=== PATIENT | female | born 1985 | race American Indian/Alaskan Native ===

== ENCOUNTER 2018-04-04 20:41 | Outpatient (CLI) | payer MEDICAID ==
[2018-04-04 21:18] VITALS: BP 102/69
[2018-04-04] MEDS ORDERED: LACTATED RINGERS 500 ML IV ONE (21:34)
== END 2018-04-04 21:52 | disposition home or self-care (01) ==
LOC: TRG 20:41
PROVIDERS: ATTEND Obstetrics & Gynecology
DX: O47.03 False labor before 37 completed weeks of gestation, third trimester (principal); O99.513 Diseases of the respiratory system complicating pregnancy, third trimester; J45.909 Unspecified asthma, uncomplicated; Z3A.36 36 weeks gestation of pregnancy; Z87.891 Personal history of nicotine dependence